=== PATIENT | male | born 1925 | race Caucasian/White ===

== ENCOUNTER 2016-06-19 09:20 | Emergency (ER) | payer OTHER ==
[~2016-06-19] VITALS: Ht 177.8 cm; Wt 73.5 kg
[2016-06-19] MEDS ORDERED: MULTIVITAMINS1 EACH PO (09:32)
[2016-06-19] MEDS ORDERED: ONE DAILY ESSE1 EACH PO (09:32)
== END 2016-06-19 12:20 | disposition home or self-care (01) ==
LOC: ED 09:20
DX: S63.502A Unspecified sprain of left wrist, initial encounter (principal); W06.XXXA Fall from bed, initial encounter; Y93.89 Activity, other specified; Y92.009 Unspecified place in unspecified non-institutional (private) residence as the place of occurrence of the external cause; Y99.9 Unspecified external cause status